=== PATIENT | female | born 1995 | race Two or more races ===

== ENCOUNTER 2017-02-25 14:22 | Inpatient (IN) | payer MEDICAID, OTHER ==
[~2017-02-25] VITALS: Ht 165.1 cm; Wt 54.1 kg
[2017-02-25] MEDS ORDERED: SODIUM CHLORIDE 0.9% 1,000 ML IV ONE (14:45)
[2017-02-25 15:16] LABS: DIFFERENTIAL COMMENT 1; HEMATOCRIT. 24.5 % (36.0-48.0); HEMOGLOBIN. 8.4 g/dL (12.0-16.0); MEAN CORPUSCULAR HEMOGLOBIN 29.5 pg (28.0-32.0); MEAN CORPUSCULAR HGB CONC 34.1 g/dL (31.0-37.0); MEAN CORPUSCULAR VOLUME 86.4 fL (81.0-99.0); MEAN PLATELET VOLUME 9.4 fl (7.4-10.4); PLATELET 202 x1000/uL (130-400); RED BLOOD CELL COUNT 2.84 mill/uL (4.2-5.4); RED CELL DISTRIBUTION WIDTH 14.5 % (11.6-14.6); WHITE BLOOD COUNT 15.8 x1000/uL (4.5-11.0)
[2017-02-25 15:38] LABS: ALANINE AMINOTRANSFERASE 17 IU/L (13-61); ALBUMIN 3.4 g/dL (3.4-5.0); ANION GAP 15; CALCIUM 8.3 mg/dL (8.5-10.1); CARBON DIOXIDE 22 mEq/L (21-32); CHLORIDE 104 mEq/L (98-107); INDEX HEMOLYSI 1 (1-3); INDEX ICTERIC 1 (1-4); INDEX LIPEMIC 1 (1-3); UREA NITROGEN BLOOD 16 mg/dL (7-21); eGFR > 60 mL/min (>60)
[2017-02-25 15:45] LABS: B-HCG QUANTITATIVE 7708 mIU/mL (<3)
[2017-02-25] MEDS ORDERED: MORPHINE SULFATE 2 MG/ML CPJ (NOT FOR IM USE) IV ONE (15:45)
[2017-02-25 16:10] LABS: PLATELET ESTIMATE NORMAL
[2017-02-25 16:11] LABS: ANISOCYTOSIS 1+
[2017-02-25] MEDS ORDERED: BUPIVACAINE HCL 0.5% (5MG/ML) 50ML ONE (18:24)
[2017-02-25] MEDS ORDERED: MIDAZOLAM HCL 2 MG/2 ML VIAL ONE (18:40)
[2017-02-25] MEDS ORDERED: FENTANYL CITRATE/PF 50MCG/ML 2ML VIAL ONE ×2 (18:41→19:17)
[2017-02-25] MEDS ORDERED: ROCURONIUM BROMIDE 10MG/ML VIAL 5ML IV ONE (18:51)
[2017-02-25] MEDS ORDERED: PROPOFOL 200MG/20ML VIAL IV ONE (18:51)
[2017-02-25] MEDS ORDERED: LIDOCAINE HCL 1% 20ML VIAL (Pyxis) INJ ONE (18:51)
[2017-02-25] MEDS ORDERED: CEFAZOLIN SODIUM 1000MG/VIAL ONE (19:00)
[2017-02-25] MEDS ORDERED: ONDANSETRON HCL 4MG/2ML VIAL ONE (19:05)
[2017-02-25] MEDS ORDERED: DEXAMETHASONE 4MG/ML 1ML VIAL ONE (19:06)
[2017-02-25] MEDS ORDERED: MORPHINE SULFATE 2 MG/ML CPJ (NOT FOR IM USE) IV PRN (20:00)
[2017-02-25] MEDS ORDERED: ONDANSETRON HCL 4MG/2ML VIAL IV PRN ×2 (20:00→20:15)
[2017-02-25] MEDS ORDERED: SODIUM CHLORIDE 0.9% 1,000 ML IV SCH (20:05)
[2017-02-25] MEDS ORDERED: MEPERIDINE HCL/PF 25MG/ML CPJ IV PRN (20:15)
[2017-02-25] MEDS: HYDROMORPHONE HCL/PF 2MG/ML CPJ IV PRN ×2 (20:21→20:35)
[2017-02-25 22:00] VITALS: BP 107/67
[2017-02-26] VITALS: BP 118/69
[2017-02-26 01:49] LABS: BASOPHILS % 0.1 % (0.0-2.0); HEMOGLOBIN. 8.1 g/dL (12.0-16.0); LYMPHOCYTES % 7.9 % (20.0-50.0); MEAN CORPUSCULAR HEMOGLOBIN 29.3 pg (28.0-32.0); MEAN CORPUSCULAR HGB CONC 33.6 g/dL (31.0-37.0); MEAN CORPUSCULAR VOLUME 87.2 fL (81.0-99.0); MEAN PLATELET VOLUME 8.9 fl (7.4-10.4); MONOCYTES % 8.2 % (2.0-8.0); NEUTROPHILS % 83.8 % (40.0-76.0); PLATELET 129 x1000/uL (130-400); RED BLOOD CELL COUNT 2.75 mill/uL (4.2-5.4); RED CELL DISTRIBUTION WIDTH 14.2 % (11.6-14.6); WHITE BLOOD COUNT 13.1 x1000/uL (4.5-11.0)
[2017-02-26 04:00] VITALS: BP 97/51
[2017-02-26 06:32] LABS: BASOPHILS % 0.1 % (0.0-2.0); HEMATOCRIT. 22.1 % (36.0-48.0); HEMOGLOBIN. 7.6 g/dL (12.0-16.0); LYMPHOCYTES % 10.6 % (20.0-50.0); MEAN CORPUSCULAR HEMOGLOBIN 29.6 pg (28.0-32.0); MEAN CORPUSCULAR HGB CONC 34.4 g/dL (31.0-37.0); MONOCYTES % 10.7 % (2.0-8.0); NEUTROPHILS % 78.6 % (40.0-76.0); PLATELET 129 x1000/uL (130-400); RED BLOOD CELL COUNT 2.57 mill/uL (4.2-5.4); RED CELL DISTRIBUTION WIDTH 14.2 % (11.6-14.6)
[2017-02-26 08:00] VITALS: BP 96/55
[2017-02-26 12:00] VITALS: BP 96/51
[2017-02-26 16:00] VITALS: BP 87/51
[2017-02-26 20:00] VITALS: BP 105/45
[2017-02-26 21:28] LABS: HEMOGLOBIN 7.1 g/dL (12.0-16.0); MEAN CORPUSCULAR HEMOGLOBIN 30.3 pg (28.0-32.0); MEAN CORPUSCULAR HGB CONC 34.6 g/dL (31.0-37.0); MEAN CORPUSCULAR VOLUME 87.5 fL (81.0-99.0); PLATELET 123 x1000/uL (130-400); RED BLOOD CELL COUNT 2.34 mill/uL (4.2-5.4)
[2017-02-26 21:35] LABS: HEMATOCRIT 20.4 % (36.0-48.0)
[2017-02-27] VITALS: BP 112/50
[2017-02-27 01:13] LABS: BASOPHILS % 0.1 % (0.0-2.0); DIFFERENTIAL COMMENT 0; EOSINOPHILS % 0.2 % (0.0-5.0); LYMPHOCYTES % 23.6 % (20.0-50.0); MEAN CORPUSCULAR HEMOGLOBIN 30.7 pg (28.0-32.0); MEAN CORPUSCULAR HGB CONC 35.3 g/dL (31.0-37.0); MEAN PLATELET VOLUME 8.8 fl (7.4-10.4); MONOCYTES % 13.4 % (2.0-8.0); NEUTROPHILS % 62.7 % (40.0-76.0); PLATELET 118 x1000/uL (130-400); RED BLOOD CELL COUNT 2.26 mill/uL (4.2-5.4); RED CELL DISTRIBUTION WIDTH 14.4 % (11.6-14.6); WHITE BLOOD COUNT 8.5 x1000/uL (4.5-11.0)
[2017-02-27 01:18] LABS: HEMATOCRIT. 19.6 % (36.0-48.0); HEMOGLOBIN. 6.9 g/dL (12.0-16.0)
[2017-02-27] MEDS ORDERED: LACTATED RINGERS 1,000 ML IV SCH (03:30)
[2017-02-27 04:00] VITALS: BP 107/49
[2017-02-27 08:00] VITALS: BP 114/81
[2017-02-27 08:47] LABS: BASOPHILS % 0.1 % (0.0-2.0); EOSINOPHILS % 0.1 % (0.0-5.0); HEMOGLOBIN. 7.2 g/dL (12.0-16.0); LYMPHOCYTES % 15.3 % (20.0-50.0); MEAN CORPUSCULAR HEMOGLOBIN 30.6 pg (28.0-32.0); MEAN CORPUSCULAR HGB CONC 35.5 g/dL (31.0-37.0); MEAN CORPUSCULAR VOLUME 86.3 fL (81.0-99.0); MEAN PLATELET VOLUME 8.7 fl (7.4-10.4); MONOCYTES % 12.7 % (2.0-8.0); NEUTROPHILS % 71.8 % (40.0-76.0); PLATELET 118 x1000/uL (130-400); RED BLOOD CELL COUNT 2.34 mill/uL (4.2-5.4); WHITE BLOOD COUNT 8.8 x1000/uL (4.5-11.0)
[2017-02-27 08:50] LABS: HEMATOCRIT. 20.2 % (36.0-48.0)
[2017-02-27 10:26] VITALS: BP 108/48
== END 2017-02-27 11:55 | disposition home or self-care (01) | DRG 545 ==
LOC: ER 14:59 → SUPCPDRO 18:32 → 6EST 19:52
PROVIDERS: ADMIT Obstetrics & Gynecology; ATTEND Obstetrics & Gynecology
PROC: 10T20ZZ Resection of Products of Conception, Ectopic, Open Approach (ICD-10-PCS; 2017-02-25)
PROC: 30233N1 Transfusion of Nonautologous Red Blood Cells into Peripheral Vein, Percutaneous Approach (ICD-10-PCS; 2017-02-25)
PROC: 0UB50ZZ Excision of Right Fallopian Tube, Open Approach (ICD-10-PCS; principal; 2017-02-25 18:30)
DX: O00.10 Tubal pregnancy without intrauterine pregnancy (principal); K66.1 Hemoperitoneum; D62 Acute posthemorrhagic anemia; O26.891 Other specified pregnancy related conditions, first trimester; O99.011 Anemia complicating pregnancy, first trimester; D72.810 Lymphocytopenia; D72.829 Elevated white blood cell count, unspecified; R73.9 Hyperglycemia, unspecified
CPT/HCPCS: 36415; 36430; 76801; 80053; 84702; 85025; 85027; 86850; 86900; 86920; 88305; 96361; 96374; 99291; J0690; J1100; J1170; J2250; J2270; J2405; J2704; J3010; J3490; J7030; J7050; J7120; P9016

== ENCOUNTER 2017-05-06 08:28 | Emergency (ER) | payer MEDICAID ==
[~2017-05-06] VITALS: Ht 165.1 cm; Wt 53.0 kg
[2017-05-06] MEDS ORDERED: ACETAMINOPHEN 325MG TABLET PO ONE (10:30)
[2017-05-06 10:42] LABS: BASOPHILS % 0.3 % (0.0-2.0); EOSINOPHILS % 0.2 % (0.0-5.0); HEMATOCRIT. 35.7 % (36.0-48.0); HEMOGLOBIN. 11.6 g/dL (12.0-16.0); MEAN CORPUSCULAR HEMOGLOBIN 24.3 pg (28.0-32.0); MEAN PLATELET VOLUME 8.9 fl (7.4-10.4); MONOCYTES % 10.2 % (2.0-8.0); NEUTROPHILS % 64.3 % (40.0-76.0); PLATELET 205 x1000/uL (130-400); RED BLOOD CELL COUNT 4.76 mill/uL (4.2-5.4); RED CELL DISTRIBUTION WIDTH 17.9 % (11.6-14.6)
[2017-05-06 10:50] LABS: CHLORIDE 105 mEq/L (98-107)
[2017-05-06 11:01] LABS: CARBON DIOXIDE 26 mEq/L (21-32)
[2017-05-06 11:13] LABS: B-HCG QUANTITATIVE 112902 mIU/mL (<3)
[2017-05-06 11:18] LABS: CLARITY URINE CLEAR (CLEAR); COLOR URINE YELLOW (YELLOW); GLUCOSE URINE NEGATIVE (NEGATIVE); KETONES URINE NEGATIVE (NEGATIVE); LEUKOCYTE ESTERASE URINE TRACE (NEGATIVE); NITRITE URINE NEGATIVE (NEGATIVE); OCCULT BLOOD URINE NEGATIVE (NEGATIVE); PH URINE 7.5 (4.5-8.0); PROTEIN URINE NEGATIVE (NEGATIVE); SPECIFIC GRAVITY URINE 1.011 (1.005-1.030); UROBILINOGEN URINE 0.2 E.U./dL (0.2-1.0)
[2017-05-06 13:01] VITALS: BP 122/79
== END 2017-05-06 13:06 | disposition home or self-care (01) ==
LOC: ER 09:44
DX: O20.0 Threatened abortion (principal); O23.41 Unspecified infection of urinary tract in pregnancy, first trimester; N39.0 Urinary tract infection, site not specified; Z3A.08 8 weeks gestation of pregnancy
CPT/HCPCS: 36415; 76801; 80048; 81001; 81025; 84702; 85025; 86850; 86900; 99285